=== PATIENT | female | born 1985 | race Caucasian/White ===

== ENCOUNTER → 2017-11-20 12:39 | Outpatient (CLI) | payer BC | END | disposition home or self-care (01) | LOC: D.US 12:39 | DX: M25.561 Pain in right knee (principal) ==

== ENCOUNTER → 2018-05-29 08:56 | Outpatient (CLI) | payer BC | END | disposition home or self-care (01) | LOC: D.CT 05-20 10:30 | DX: R10.9 Unspecified abdominal pain (principal) ==

== ENCOUNTER → 2018-12-04 09:51 | Outpatient (CLI) | payer BC ==
[2018-12-04 10:43] LABS: ALBUMIN 4.1 g/dL (3.4-5.0); BILIRUBIN - DIRECT 0.11 mg/dL (0.00-0.30); BILIRUBIN - INDIRECT 0.48 mg/dL (0.00-1.00); BILIRUBIN - TOTAL 0.59 mg/dL (0.2-1.3); PROTEIN - SERUM 8.3 g/dL (6.4-8.2)
== END | disposition home or self-care (01) ==
LOC: D.LAB 11-26 08:00 → D.US 11-26 08:30 → D.LAB 09:51
PROVIDERS: ATTEND Internal Medicine Gastroenterology
DX: K76.0 Fatty (change of) liver, not elsewhere classified (principal)